=== PATIENT | male | born 1950 | race Caucasian/White ===

== ENCOUNTER 2018-04-24 18:38 | Observation (INO) | payer MEDICARE, MEDICAID ==
[2018-04-24 19:19] LABS: ABS Basophils 0.1 10^3/ul (0-0.2); ABS Eosinophils 0 10^3/ul (0-0.6); ABS Lymphocytes 1.1 10^3/ul (1.0-4.8); ABS Monocytes 0.3 10^3/ul (0-0.8); ABS Neutrophils 5.6 10^3/ul (1.5-7.7); ABS Nucleated RBC 0 10^3/ul; Eosinophil % 0.3 % (0-6); Hematocrit 44 % (42-52); Hemoglobin 15.2 g/dl (14.0-18.0); Lymphocyte % 15.5 % (25-47); Mean Corpuscular HGB Conc 35 g/dl (31-36); Mean Corpuscular Hemoglobin 30 pg (27-31); Mean Corpuscular Volume 87 fL (80-94); Nucleated Red Blood Cells % 0.1; Platelet Count 249 10^3/ul (150-450); Red Blood Count 5.04 10^6/ul (4.00-5.40); Red Cell Distribution Width 14 % (10.5-15)
[2018-04-24 19:34] LABS: EGFR Non-African American 91.7 (>60)
--- NOTE | 2018-04-24 19:39 | RAD ---
INDICATION: Altered mental status. COMPARISON: Comparison is made with a prior CT of the brain from March 14, 2016. TECHNIQUE: Contiguous axial sections of the brain were obtained from the skull base to the vertex without contrast. The exam is limited due to motion artifact. FINDINGS: There is a prominent cisterna magna which is unchanged consistent with normal variation. The ventricles and cisterns and sulci are otherwise unremarkable. There is a small area of decreased attenuation present lateral to the right caudate nucleus which is unchanged from the prior exam suggestive of an old lacunar infarct. No other focal abnormalities or mass effect is seen. There is no evidence for hemorrhage. No significant focal osseous abnormality is seen. The visualized portion of the paranasal sinuses and mastoid air cells appear clear. IMPRESSION: 1. LIMITED STUDY, NO EVIDENCE FOR ACUTE INTRACRANIAL ABNORMALITY. 2. POSSIBLE OLD LACUNAR INFARCT, UNCHANGED.
--- NOTE | 2018-04-24 20:03 | RAD ---
INDICATION: Altered mental status. COMPARISON: Comparison is made with a prior study from September 18, 2013. TECHNIQUE: A single AP view of the chest was obtained sitting. FINDINGS: The heart is within normal limits in size. The lungs are underinflated. There are small infiltrates at both lung bases. No pleural effusion is seen. IMPRESSION: LOW LUNG VOLUMES, SMALL BIBASILAR INFILTRATES.
[2018-04-24] MEDS ORDERED: cefTRIAXone(*) 1 GM in NS 0.9% 50 ML* 50 ML IVPB ONE (20:19)
[2018-04-24] MEDS ORDERED: Ondansetron INJ* 2 MG/ML VIAL IV PRN (21:27)
[2018-04-24] MEDS ORDERED: levETIRAcetam IV* 1,000 MG in NS 0.9% 100 ML* 100 ML IVPB ONE (21:47)
[2018-04-24] MEDS: busPIRone TAB* 10 MG PO SCH (22:15)
[2018-04-24] MEDS: Heparin VIAL(*) 5000 UNITS/ML VIAL (FIVE THOUSAND) SUBCUT SCH (22:17)
[2018-04-24] MEDS: NS 0.9% 1000 ML* 1,000 ML IV SCH (22:51)
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
[2018-04-25] MEDS: Heparin VIAL(*) 5000 UNITS/ML VIAL (FIVE THOUSAND) SUBCUT SCH ×2 (05:33→14:33)
[2018-04-25 06:20] LABS: Hematocrit 42 % (42-52); Hemoglobin 14.3 g/dl (14.0-18.0); Mean Corpuscular HGB Conc 34 g/dl (31-36); Mean Corpuscular Hemoglobin 30 pg (27-31); Mean Corpuscular Volume 88 fL (80-94); Mean Platelet Volume 7.9 um3 (7.4-10.4); Platelet Count 223 10^3/ul (150-450); Red Blood Count 4.77 10^6/ul (4.00-5.40); Red Cell Distribution Width 14 % (10.5-15); White Blood Count 7.3 10^3/ul (3.5-10.8)
[2018-04-25 06:23] LABS: ABS Basophils 0 10^3/ul (0-0.2); ABS Eosinophils 0 10^3/ul (0-0.6); ABS Lymphocytes 1.2 10^3/ul (1.0-4.8); ABS Monocytes 0.6 10^3/ul (0-0.8); ABS Neutrophils 5.4 10^3/ul (1.5-7.7); ABS Nucleated RBC 0 10^3/ul; Eosinophil % 0.5 % (0-6); Lymphocyte % 16.5 % (25-47); Nucleated Red Blood Cells % 0
[2018-04-25 06:30] LABS: EGFR Non-African American 132.7 (>60)
[2018-04-25] MEDS: busPIRone TAB* 10 MG PO SCH ×2 (08:32→14:33)
[2018-04-25] MEDS: NS 0.9% 1000 ML* 1,000 ML IV SCH (08:38)
[2018-04-25] MEDS ORDERED: Atorvastatin* 40 MG TAB PO SCH (09:00)
[2018-04-25] MEDS ORDERED: FLUoxetine CAP* 10 MG PO SCH (09:00)
[2018-04-25] MEDS ORDERED: ARIPiprazole TAB* 5 MG PO SCH (09:00)
[2018-04-25] MEDS ORDERED: FLUoxetine CAP* 20 MG PO SCH (09:00)
--- NOTE | 2018-04-25 13:24 | CONSULT ---
Consult Consult: Pt was seen at bedside. Pt and family feel like he is back to baseline. The diagnosis here is probably breakthrough seizures. He was probably post ictal and then recovered but had another seizure last night to put him in a confused state. He has evidence of tongue biting (laceration of tongue was present on exam). Levetiracetam is not a good option given his history of anxiety and depression. I started Zonisamide 100 mg daily to increase to 200 mg daily after 3 days. I also placed him back on phenytoin 125 mg three times daily. The supratherapeutic level is not contributing to his seizures or confusion. Pt is cleared to go home from the neurology standpoint once the UA and urine tox are back. Complete consult note was dictated.
[2018-04-25] MEDS ORDERED: CMCS Zonisamide (NF) 50 MG CAP PO SCH (14:00)
[2018-04-25] MEDS ORDERED: Phenytoin CHEW TAB(*) 50 MG PO SCH (14:00)
--- NOTE | 2018-04-25 14:29 | ED ---
Derrick Christianson Tiffany, scribed for Soto Moctezuma MD on 04/24/18 at 1913 . Altered Mental Status - HPI Summary HPI Summary: 67 year old M presenting to [facility] complains of confusion since 13:00 today. Symptoms aggravated by nothing. Symptoms alleviated by nothing. Patient's mother reports that patient was found confused downtown by police who brought him to mental health facility, where one staff member took him home to be with his brother and [id number], upon which patient did not recognize his home or his family members. Patient has no memory of this episode of confusion. - History Of Current Complaint Chief Complaint: EDAltMentalStatus Stated Complaint: MHE Time Seen by Provider: 04/24/18 18:52 Hx Obtained From: Family/Operational Review Sergeant - mother Timing: Lasting Hours - 13:00 today Character: Confusion Aggravating Factor(s): Nothing Alleviating Factor(s): Nothing - Allergies/Home Medications Allergies/Adverse Reactions: Allergies Allergy/AdvReac Type Severity Reaction Status Date / Time No Known Allergies Allergy Verified 04/24/18 18:46 Home Medications: Home Medications ARIPiprazole TAB* [Abilify TAB*] 5 mg PO DAILY 04/24/18 [History Confirmed 10/01] Atorvastatin* [Lipitor*] 40 mg PO DAILY 04/24/18 [History Confirmed 04/24/18] FLUoxetine CAP* [PROzac CAP*] 10 mg PO QAM 04/24/18 [History Confirmed 04/24/18] FLUoxetine CAP* [PROzac CAP*] 20 mg PO QAM 04/24/18 [History Confirmed 04/24/18] Phenytoin 125 mg PO TID 04/24/18 [History Confirmed 04/24/18] PMH/Surg Hx/FS Hx/Imm Hx Previously Healthy: No Endocrine/Hematology History: Denies: Hx Anticoagulant Therapy, Hx Blood Disorders Neurological History: Reports: Hx Seizures Psychiatric History: Reports: Hx Anxiety, Hx Depression Denies: Hx Schizophrenia, Hx Bipolar Disorder - Immunization History Date of Tetanus Vaccine: UNSURE Date of Influenza Vaccine: 2012 Infectious Disease History: No Infectious Disease History: Denies: Traveled Outside the [place] in Last 30 Days - Family History Known Family History: Positive: Unknown - Social History Alcohol Use: None Hx Substance Use: No Substance Use Type: Reports: None Hx Tobacco Use: No Smoking Status (MU): Never Smoked Tobacco Review of Systems Negative: Fever Neurological: Other - confusion All Other Systems Reviewed And Are Negative: Yes Physical Exam - Summary Physical Exam Summary: VITAL SIGNS: Reviewed. GENERAL: Patient is a well-developed and nourished male who is lying comfortable in the stretcher. Patient is not in any acute respiratory distress. HEAD AND FACE: No signs of trauma. No ecchymosis, hematomas or skull depressions. No sinus tenderness. EYES: PERRLA, EOMI x 2, No injected conjunctiva, no nystagmus. EARS: Hearing grossly intact. Ear canals and tympanic membranes are within normal limits. MOUTH: Oropharynx within normal limits. NECK: Supple, trachea is midline, no adenopathy, no JVD, no carotid bruit, no c- spine tenderness, neck with full ROM. CHEST: Symmetric, no tenderness at palpation LUNGS: Clear to auscultation bilaterally. No wheezing or crackles. CVS: Regular rate and rhythm, S1 and S2 present, no murmurs or gallops appreciated. ABDOMEN: Soft, non-tender. No signs of distention. No rebound no guarding, and no masses palpated. Bowel sounds are normal. EXTREMITIES: FROM in all major joints, no edema, no cyanosis or clubbing. NEURO: Alertx3, but not oriented. No acute neurological deficits. Speech is normal and follows commands. He is confused. SKIN: Dry and warm Triage Information Reviewed: Yes Vital Signs On Initial Exam: Initial Vitals Temp Pulse Resp BP Pulse Ox 97.8 F 99 20 145/91 94 04/24/18 18:41 04/24/18 18:41 04/24/18 18:41 04/24/18 18:41 04/24/18 18:41 Vital Signs Reviewed: Yes Diagnostics - Vital Signs Vital Signs Temp Pulse Resp BP Pulse Ox 04/24/18 18:41 97.8 F 99 20 145/91 94 - Laboratory Lab Results: Lab Results 04/24/18 04/24/18 04/24/18 Range/Units 19:00 19:00 20:12 WBC 7.0 (3.5-10.8) 10^3/ul RBC 5.04 (4.00-5.40) 10^6/ul Hgb 15.2 (14.0-18.0) g/dl Hct 44 (42-52) % MCV 87 (80-94) fL MCH 30 (27-31) pg MCHC 35 (31-36) g/dl RDW 14 (10.5-15) % Plt Count 249 (150-450) 10^3/ul MPV 8.0 (7.4-10.4) um3 Neut % (Auto) 79.5 (38-83) % Lymph % (Auto) 15.5 L (25-47) % [place] % (Auto) 3.9 (0-7) % Eos % (Auto) 0.3 (0-6) % Baso % (Auto) 0.8 (0-2) % Absolute Neuts (auto) 5.6 (1.5-7.7) 10^3/ul Absolute Lymphs (auto) 1.1 (1.0-4.8) 10^3/ul Absolute Monos (auto) 0.3 (0-0.8) 10^3/ul Absolute Eos (auto) 0 (0-0.6) 10^3/ul Absolute Basos (auto) 0.1 (0-0.2) 10^3/ul Absolute Nucleated RBC 0 10^3/ul Nucleated RBC % 0.1 Sodium 140 (139-145) mmol/L Potassium 4.1 (3.5-5.0) mmol/L Chloride 103 (101-111) mmol/L Carbon Dioxide 28 (22-32) mmol/L Anion Gap 9 (2-11) mmol/L BUN 17 (6-24) mg/dL Creatinine 0.84 (0.67-1.17) mg/dL Est GFR ( Amer) 117.9 (>60) Est GFR (Non-Af Amer) 91.7 (>60) BUN/Creatinine Ratio 20.2 H (8-20) Glucose 176 H (70-100) mg/dL Lactic Acid 1.5 (0.5-2.0) mmol/L Calcium 9.8 (8.6-10.3) mg/dL Total Bilirubin 0.30 (0.2-1.0) mg/dL AST 13 (13-39) U/L ALT 15 (7-52) U/L Alkaline Phosphatase 154 H (34-104) U/L Troponin I 0.00 (<0.04) ng/mL C-Reactive Protein 14.28 H (< 5.00) mg/L Total Protein 8.1 (6.4-8.9) g/dL Albumin 4.3 (3.2-5.2) g/dL Globulin 3.8 (2-4) g/dL Albumin/Globulin Ratio 1.1 (1-3) TSH 2.03 (0.34-5.60) mcIU/mL Salicylates < 2.50 (<30) mg/dL Acetaminophen < 15 mcg/mL Serum Alcohol < 10 (<10) mg/dL Result Diagrams: 04/25/18 06:01 04/25/18 06:01 Lab Statement: Any lab studies that have been ordered have been reviewed, and results considered in the medical decision making process. - Radiology CXR Radiology Interpretation Completed By: Radiologist - LOW LUNG VOLUMES, SMALL BIBASILAR INFILTRATES. ED physician has reviewed this report. - CT Brain CT Interpretation Completed By: Radiologist - 1. LIMITED STUDY, NO EVIDENCE FOR ACUTE INTRACRANIAL ABNORMALITY. 2. POSSIBLE OLD LACUNAR INFARCT, UNCHANGED. ED physician has reviewed this report. - EKG 19:13 Cardiac Rate: Tachycardia - 101 BPM EKG Rhythm: Sinus Tachycardia EKG Interpretation: No ST elevations. Normal axis. Altered Mental Statu Course/Dx - Course Assessment/Plan: Initially the patient was placed on a groundwater monitoring technician, IV access was obtained, and the patient was started and an IV fluids. Blood test results without any significant abnormality except Glucose 176. Alcohol level is less than 10, acetaminophen level less than 15 and salicylates less than 2.5. EKG: Normal sinus rhythm without any ST elevations. Chest x-ray impression: low lung volumes, small bibasilar infiltrates. Head CT impression : Limited study, no evidence for acute intracranial abnormality. Possible old lacunar infarct unchanged. In the ED course the patient has remained calm and stable. He continues to be confused, therefore, I discussed my physical examination findings per Dr. Morales from the hospitalist services who agrees to admit the patient services for further workup and management. Dr. Morales requested not given antibiotics since she doesnt think that the patient has pneumonia. - Diagnoses Provider Diagnoses: Altered mental status - Provider Notifications Discussed Care Of Patient With: Felicia Barlow Time Discussed With Above Provider: 20:53 Instructed by Provider To: Other - Dr. Barlow, hospitalist, agrees to admit patient. Discharge - Sign-Out/Discharge Documenting (check all that apply): Discharge/Admit/Transfer - Discharge Plan Condition: Stable Disposition: ADMITTED TO [facility] - Billing Disposition and Condition Condition: STABLE Disposition: Admitted to [facility] The documentation as recorded by the Derrick catalan Tiffany accurately reflects the service I personally performed and the decisions made by , Soto Moctezuma MD.
[2018-04-25 14:38] LABS: Urine Appearance Clear; Urine Blood Negative (Negative); Urine Color Straw; Urine Ketones Negative (Negative); Urine Protein Negative (Negative); Urine Specific Gravity 1.008 (1.010-1.030); Urine Urobilinogen Negative (Negative)
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
[2018-04-25 15:59] VITALS: BP 112/59
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
== END 2018-04-25 17:50 | disposition home or self-care (01) ==
LOC: ED 18:38 → MED 21:27 → OBSVTOIN 21:27 → INTOOBSV 21:27
PROVIDERS: ADMIT Pediatrics; ATTEND Hospitalist
DX: R41.0 Disorientation, unspecified (principal); G40.909 Epilepsy, unspecified, not intractable, without status epilepticus; R41.82 Altered mental status, unspecified; F32.9 Major depressive disorder, single episode, unspecified; E78.5 Hyperlipidemia, unspecified; F41.9 Anxiety disorder, unspecified; G31.84 Mild cognitive impairment of uncertain or unknown etiology
CPT/HCPCS: 36415; 70450; 71045; 80048; 80053; 80185; 80307; 80320; 80329; 81003; 82550; 83605; 84145; 84443; 84484; 85025; 86140; 93005; 95816; 96365; 96366; 99283; A9270-GY; G0378; G0480; J1644

== ENCOUNTER 2018-09-06 14:47 | Inpatient (IN) | payer MEDICARE, MEDICAID ==
--- NOTE | 2018-09-06 15:01 | ED ---
Neurological HPI - HPI Summary HPI Summary: This pt is a 69 y/o male presenting to [facility] for confusion. is providing the history today. Pt has hx of seizures. reports the pt went to Dr. Booth' s office yesterday for blood work. Blood work shows phenytoin of 35.9 (from ). states they were instructed to stop Dilantin last night and this morning. Pt's last dose of Dilantin was at 17:00 yesterday. notes that pt woke up at 13:30 in a state of confusion. reports pt has an upcoming appointment with Dr. Booth on September 14. HPI IS LIMITED DUE TO LEVEL 5 CAVEAT - pt with confusion. - History of Current Complaint Stated Complaint: CONFUSION Hx Obtained From: Family/Skid Worker - Hx From Patient Unobtainable Due To: Other - Pt with confusion and AMS Onset/Duration: Started hours ago, Still Present Timing: Sudden Onset Current Severity: Severe Character: Confusion Aggravating: Unknown Alleviating: Unknown Associated Signs and Symptoms: Positive: Confusion, AMS - Additional Pertinent History Primary Care Physician: ED - Allergy/Home Medications Allergies/Adverse Reactions: Allergies Allergy/AdvReac Type Severity Reaction Status Date / Time No Known Allergies Allergy Verified 04/24/18 18:46 Home Medications: Home Medications Cholecalciferol (Vitamin D3) [Vitamin D3] 1,000 unit PO DAILY 09/06/18 [History Confirmed 09/06/18] FLUoxetine CAP* [PROzac CAP*] 10 mg PO QAM 09/06/18 [History Confirmed 09/06/18] FLUoxetine CAP* [PROzac CAP*] 20 mg PO QAM 09/06/18 [History Confirmed 09/06/18] Phenytoin CHEW TAB(*) [Dilantin Infatabs CHEW TAB(*)] 125 mg PO TID 09/06/18 [ History Confirmed 09/06/18] Zonisamide(NF) [Zonegran(NF)] 200 mg PO DAILY 09/06/18 [History Confirmed ] busPIRone TAB* [Buspar TAB *] 30 mg PO TID PRN 09/06/18 [History Confirmed 09/06] PMH/Surg Hx/FS Hx/Imm Hx Endocrine/Hematology History: Denies: Hx Anticoagulant Therapy, Hx Blood Disorders Sensory History: Denies: Hx Contacts or Glasses, Hx Hearing Aid Opthamlomology History: Denies: Hx Contacts or Glasses Neurological History: Reports: Hx Seizures Psychiatric History: Reports: Hx Anxiety, Hx Depression Denies: Hx Schizophrenia, Hx Bipolar Disorder - Immunization History Date of Tetanus Vaccine: UNSURE Date of Influenza Vaccine: 2012 - Family History Known Family History: Positive: Unknown - due to level 5 caveat - pt with confusion - Social History Alcohol Use: None Hx Substance Use: No Substance Use Type: Reports: None Hx Tobacco Use: No Smoking Status (MU): Never Smoked Tobacco Review of Systems - ROS Summary Review of Systems Summary: ROS IS LIMITED DUE TO LEVEL 5 CAVEAT - pt with confusion Negative: Fever Neurological: Other - POS: confusion All Other Systems Reviewed And Are Negative: No Physical Exam - Summary Physical Exam Summary: VITAL SIGNS: Reviewed. GENERAL: Patient is a well-developed and nourished male who is lying comfortable in the stretcher. Patient is not in any acute respiratory distress. HEAD AND FACE: No signs of trauma. No ecchymosis, hematomas or skull depressions. No sinus tenderness. EYES: PERRLA, EOMI x 2, No injected conjunctiva, no nystagmus. EARS: Hearing grossly intact. Ear canals and tympanic membranes are within normal limits. MOUTH: Oropharynx within normal limits. NECK: Supple, trachea is midline, no adenopathy, no JVD, no carotid bruit, no c- spine tenderness, neck with full ROM. CHEST: Symmetric, no tenderness at palpation LUNGS: Clear to auscultation bilaterally. No wheezing or crackles. CVS: Regular rate and rhythm, S1 and S2 present, no murmurs or gallops appreciated. ABDOMEN: Soft, non-tender. No signs of distention. No rebound, no guarding, and no masses palpated. Bowel sounds are normal. EXTREMITIES: FROM in all major joints, no edema, no cyanosis or clubbing. NEURO: Alert but not oriented. Pt is ataxic. SKIN: Dry and warm GCS: 13 Triage Information Reviewed: Yes Vital Signs On Initial Exam: Initial Vitals Temp Pulse Resp BP Pulse Ox 98.2 F 100 16 142/82 95 09/06/18 14:57 09/06/18 14:57 09/06/18 14:57 09/06/18 14:57 10/24/18 14:57 Vital Signs Reviewed: Yes Completion Of Physical Exam Limited Due To: Level 5 - pt with confusion Diagnostics - Laboratory Result Diagrams: 09/06/18 15:17 09/06/18 15:17 Lab Statement: Any lab studies that have been ordered have been reviewed, and results considered in the medical decision making process. - Radiology Chest XR Radiology Interpretation Completed By: Radiologist Summary of Radiographic Findings: IMPRESSION: No active cardiopulmonary disease. Dr. Moctezuma has reviewed this report. - CT Brain CT CT Interpretation Completed By: Radiologist Summary of CT Findings: IMPRESSION: No intracranial mass or hemorrhage is noted. Dr. Moctezuma has reviewed this report. - EKG 15:11 Cardiac Rate: NL - at 99 bpm EKG Rhythm: Sinus Rhythm Summary of EKG Findings: No ST elevations. Course/Dx - Course Assessment/Plan: Pt is a 69 y/o male presenting to [facility] for confusion. is providing the history today. Pt has hx of seizures. reports the pt went to Dr. Booth's office yesterday for blood work. Blood work shows phenytoin of 35.9 ( from 09/05/18). states they were instructed to stop Dilantin last night and this morning. Pt's last dose of Dilantin was at 17:00 yesterday. notes that pt woke up at 13:30 in a state of confusion. reports pt has an upcoming appointment with Dr. Booth on September 14. In the physical exam the patient is confused and ataxic. Blood work without any significant abnormalities except for glucose of 174, magnesium 1.8, urinalysis is negative for UTI, and phenytoin level is 35.4. Patient was given magnesium by mouth. Head CT impression: No intracranial mass or hemorrhage. Chest x-ray impression : No acute pathology. I discussed the case with Dr. Sargent who recommends admission due to the phenytoin toxicity. I discussed my physical exam, findings and test results with Dr. Leija from the hospitalist services and she agrees to admit patient to her services. Patient is hemodynamically stable, alert but not oriented. - Differential Dx Differential Diagnoses Neuro: Positive: Carbon Monoxide Poisoning, Dysrhythmia, Seizure Disorder, Transient Ischemic Attack - Diagnoses Provider Diagnoses: Phenytoin toxicity - Physician Notifications Discussed Care Of Patient With: Bethany Leija - hospitalist Time Discussed With Above Provider: 16:19 Instructed by Provider To: Admit As Inpatient Discharge - Sign-Out/Discharge Documenting (check all that apply): Patient Departure - Admit to [facility] All imaging exams completed and their final reports reviewed: Yes - Discharge Plan Condition: Stable Disposition: ADMITTED TO [facility] - Billing Disposition and Condition Condition: STABLE Disposition: Admitted to [facility] - Attestation Statements Document Initiated by Scribe: Yes Documenting Scribe: Kelli Romero Provider For Whom Scribe is Documenting (Include Credential): Soto Moctezuma MD Scribe Attestation: Kelli Christianson, scribed for Soto Moctezuma MD on 09/06/18 at 1832. Scribe Documentation Reviewed: Yes Provider Attestation: The documentation as recorded by the Kelli catalan accurately reflects the service I personally performed and the decisions made by me, Soto Moctezuma MD
[2018-09-06 15:33] LABS: ABS Basophils 0 10^3/ul (0-0.2); ABS Eosinophils 0 10^3/ul (0-0.6); ABS Lymphocytes 0.5 10^3/ul (1.0-4.8); ABS Monocytes 0.5 10^3/ul (0-0.8); ABS Neutrophils 7.5 10^3/ul (1.5-7.7); ABS Nucleated RBC 0 10^3/ul; Eosinophil % 0.1 % (0-6); Hematocrit 44 % (42-52); Hemoglobin 15.4 g/dl (14.0-18.0); Mean Corpuscular HGB Conc 35 g/dl (31-36); Mean Corpuscular Hemoglobin 30 pg (27-31); Mean Corpuscular Volume 87 fL (80-94); Nucleated Red Blood Cells % 0; Platelet Count 201 10^3/ul (150-450); Red Blood Count 5.07 10^6/ul (4.00-5.40); Red Cell Distribution Width 14 % (10.5-15); White Blood Count 8.5 10^3/ul (3.5-10.8)
--- NOTE | 2018-09-06 15:36 | RAD ---
HISTORY: confusion COMPARISONS: April 24, 2018 VIEWS: 1: frontal AP view of the chest at 3:10 PM FINDINGS: LINES AND TUBES: None. CARDIOMEDIASTINAL SILHOUETTE: The aorta is tortuous. The cardiomediastinal silhouette is otherwise normal for portable technique. PLEURA: The costophrenic angles are sharp. No pleural abnormalities are noted. LUNG PARENCHYMA: The lungs are clear. ABDOMEN: The upper abdomen is clear. There is no subphrenic gas. BONES AND SOFT TISSUES: No bone or soft tissue abnormalities are noted. IMPRESSION: NO ACTIVE CARDIOPULMONARY DISEASE.
[2018-09-06 15:51] LABS: EGFR Non-African American 125.5 (>60)
--- NOTE | 2018-09-06 16:08 | RAD ---
Indication: Confusion. CT of the brain performed without IV contrast. Ventricular structures are midline. No midline shift is noted. The extra-axial spaces are unremarkable. There is no evidence of intracranial mass or hemorrhage. No other high or low density lesions are noted. Mastoid air cells and paranasal sinuses are otherwise unremarkable. IMPRESSION: No intracranial mass or hemorrhage is noted.
[2018-09-06] MEDS ORDERED: Acetaminophen TAB* 325 MG PO PRN (16:45)
[2018-09-06] MEDS ORDERED: Magnesium Hydroxide LIQ* 30 ML UDC PO PRN (16:45)
[2018-09-06] MEDS ORDERED: busPIRone TAB* 15 MG PO PRN (16:47)
[2018-09-06 17:20] LABS: Urine Appearance Cloudy; Urine Blood Negative (Negative); Urine Color Yellow; Urine Ketones Trace (Negative); Urine Protein Negative (Negative); Urine Specific Gravity 1.015 (1.010-1.030); Urine Urobilinogen Positive (Negative)
[2018-09-06] MEDS ORDERED: busPIRone TAB* 30 MG PO PRN (18:00)
[2018-09-06] MEDS: FLUoxetine CAP* 20 MG PO SCH (18:31)
[2018-09-06] MEDS: FLUoxetine CAP* 10 MG PO SCH (18:31)
[2018-09-06] MEDS: Atorvastatin* 40 MG TAB PO SCH (18:31)
[2018-09-06] MEDS: NS 0.9% 1000 ML* 1,000 ML IV SCH (18:32)
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
[2018-09-06] MEDS: Heparin VIAL(*) 5000 UNITS/ML VIAL (FIVE THOUSAND) SUBCUT SCH (21:34)
[2018-09-06] MEDS ORDERED: Benztropine TAB* 1 MG PO ONE (22:00)
[2018-09-07] MEDS: Heparin VIAL(*) 5000 UNITS/ML VIAL (FIVE THOUSAND) SUBCUT SCH ×3 (05:39→23:11)
[2018-09-07] MEDS: NS 0.9% 1000 ML* 1,000 ML IV SCH ×2 (05:39→15:35)
[2018-09-07 09:01] LABS: ABS Basophils 0 10^3/ul (0-0.2); ABS Eosinophils 0.1 10^3/ul (0-0.6); ABS Lymphocytes 1.1 10^3/ul (1.0-4.8); ABS Neutrophils 5.6 10^3/ul (1.5-7.7); ABS Nucleated RBC 0 10^3/ul; Eosinophil % 1.1 % (0-6); Hematocrit 46 % (42-52); Hemoglobin 16.2 g/dl (14.0-18.0); Lymphocyte % 13.7 % (25-47); Mean Corpuscular HGB Conc 35 g/dl (31-36); Mean Corpuscular Hemoglobin 31 pg (27-31); Mean Corpuscular Volume 88 fL (80-94); Mean Platelet Volume 8.7 um3 (7.4-10.4); Nucleated Red Blood Cells % 0.1; Platelet Count 206 10^3/ul (150-450); Red Blood Count 5.22 10^6/ul (4.00-5.40); Red Cell Distribution Width 14 % (10.5-15); White Blood Count 7.9 10^3/ul (3.5-10.8)
[2018-09-07] MEDS: FLUoxetine CAP* 20 MG PO SCH (09:16)
[2018-09-07] MEDS: CMC:Zonisamide (NF) 50 MG CAP PO SCH (09:16)
[2018-09-07] MEDS: Atorvastatin* 40 MG TAB PO SCH (09:16)
[2018-09-07] MEDS: FLUoxetine CAP* 10 MG PO SCH (09:16)
[2018-09-07 09:20] LABS: EGFR Non-African American 127.8 (>60)
[2018-09-07] MEDS ORDERED: KCL 10 MEQ/50 ML IVPREMIX* 0 MEQ/0 ML BAG ONE (10:36)
--- NOTE | 2018-09-07 13:47 | PN ---
Subjective Date of Service: 09/07/18 Interval History: . Patient is able to tell me where he is, name and and why he is the hospital. Pt reports feeling "restless". He experienced some nausea with vomiting x2 this afternoon after lunch Objective Active Medications: Acetaminophen (Tylenol Tab*) 650 mg PO Q4H PRN PRN Reason: FEVER/PAIN Atorvastatin Calcium (Lipitor*) 40 mg PO DAILY [facility] Last Admin: 09/07/18 09:16 Dose: 40 mg Buspirone HCl (Buspar Tab*) 30 mg PO TID PRN PRN Reason: ANXIETY Last Admin: 09/06/18 18:32 Dose: 30 mg Fluoxetine HCl (Prozac Cap*) 20 mg PO QAM [facility] Last Admin: 09/07/18 09:16 Dose: 20 mg Fluoxetine HCl (Prozac Cap*) 10 mg PO QAM [facility] Last Admin: 09/07/18 09:16 Dose: 10 mg Heparin Sodium (Porcine) (Heparin Vial(*)) 5,000 units SUBCUT Q8HR [facility] Last Admin: 09/07/18 05:39 Dose: 5,000 units Sodium Chloride (Ns 0.9% 1000 Ml*) 1,000 mls @ 100 mls/hr IV PER RATE [facility] Last Admin: 09/07/18 05:39 Dose: 100 mls/hr Magnesium Hydroxide (Milk Of Magnprema Liq*) 30 ml PO Q4H PRN PRN Reason: CONSTIPATION Zonisamide (Zonegran (Nf)) 200 mg PO DAILY [facility] Last Admin: 09/07/18 09:16 Dose: 200 mg Vital Signs - 8 hr 09/07/18 08:00 Respiratory 16 Rate Oxygen Devices in Use Now: None Appearance: 67 yo male laying in bed restless A+O x3 in NAD - lip smacking noted Eyes: No Scleral Icterus, PERRLA Ears/Nose/Mouth/Throat: NL Teeth, Lips, Gums, Mucous Membranes Moist Respiratory: Symmetrical Chest Expansion and Respiratory Effort, Clear to Auscultation Cardiovascular: NL Sounds; No Murmurs; No JVD, RRR, No Edema Abdominal: NL Sounds; No Tenderness; No Distention Lymphatic: No Cervical Adenopathy Extremities: No Edema, No Clubbing, Cyanosis Skin: No Rash or Ulcers, No Nodules or Sclerosis Neurological: Alert and Oriented x 3, NL Muscle Strength and Tone, - - tardive dyskinesia signs of lip smacking Lines/Tubes/Other Access: Clean, Dry and Intact Peripheral IV Nutrition: Taking PO's Result Diagrams: 09/07/18 06:30 09/07/18 06:30 Assess/Plan/Problems-Billing Assessment: 67 yo male with PMH of developmental disability, seizures on dilantin who presented with AMS found to have supratheraputic Dilantin levels. - Patient Problems (1) Altered mental status Comment: - Resolved - Dilantin toxicity level of 35 down to 27. Dilantin on hold. - Appreciate Neurology consult - recommends to restart Dilantin when level reaches closer to 20. - Ammonia level mildly elevated on admission -> now normal - Check Dilantin levels daily (2) Seizure Comment: - Hold dilantin - Seizure precautions (3) DVT prophylaxis Comment: HSQ (4) Full code status Status and Disposition: OBV with AMS with Dilantin toxicity. Home when medically stable
[2018-09-07] MEDS: Ondansetron INJ* 2 MG/ML VIAL IV PRN ×2 (14:58→15:38)
[2018-09-07] MEDS ORDERED: Ondansetron INJ* 2 MG/ML VIAL IV PRN (15:35)
[2018-09-07] MEDS ORDERED: Ondansetron INJ* 2 MG/ML VIAL ONE (15:37)
[2018-09-07] MEDS ORDERED: LORazepam INJ* 2 MG/ML 1 ML VIAL ONE (20:04)
[2018-09-07] MEDS ORDERED: LORazepam INJ* 2 MG/ML 1 ML VIAL IV PUSH ONE ×3 (20:06→22:25)
[2018-09-07] MEDS ORDERED: levETIRAcetam IV* 750 MG in NS 0.9% 100 ML* 100 ML IVPB ONE (20:12)
--- NOTE | 2018-09-07 20:21 | PN ---
Progress Note - Progress Note Date of Service: 09/07/18 Note: Called to bedside by RN for concern of seizure activity. Patient reported to have at least 3 seizures lasting 30-60 seconds since 7pm. At the time of my first examination, patient was awake and answering questions appropriately with one word answers. Within 5-10 minutes, Dr. Ridley to bedside and patient was again actively seizing (unresponsive to stimuli, mild generalized shaking, snoring respirations). Ativan ordered, call placed to Dr. Orosco. Suspect seizures secondary to changes in dilantin level though it is likely still supratherapeutic. Ana Luisa recommended keppra 750mg IV x 1 and agreed with transfer to ICU. Will order CBC, CMP, lactic acid, CPK now. Plan for EEG tomorrow. Ativan prn. Seizure precautions with close monitoring.
[2018-09-07] MEDS ORDERED: levETIRAcetam 500 MG IVPREMIX* 500 MG/100 ML BAG IV SCH (21:00)
--- NOTE | 2018-09-07 21:38 | CONS ---
NEUROLOGY FOLLOWUP NOTE: DATE OF FOLLOWUP: 09/07/18. LOCATION: He is in room# 448. HOSPITALIST: Aysha Lemus NP. CHIEF COMPLAINT: Dilantin toxicity. INTERVAL HISTORY: Since yesterday, Danyel has not been up and walking. He has been nauseous and vomited earlier today. MEDICATIONS: Medications are reviewed and he remains off of Dilantin, he is on: 1. Atorvastatin 40 mg p.o. daily. 2. BuSpar 30 mg p.o. t.i.d. as needed for anxiety. 3. Fluoxetine 30 mg p.o. daily. 4. Zonisamide 200 mg p.o. daily. PHYSICAL EXAM: He has an upset stomach and feels dizzy. He has fairly constant [id number] dyskinesias. Temperature 98.8, blood pressure 126/ 66, heart rate in the 70s and regular. Eye movements are full without nystagmus. There is no asterixis or myoclonus in the arms. LABORATORY DATA: Includes a Dilantin level today of 27.3, down from 35.4 on . CBC today is unremarkable and chemistry profile was likewise unremarkable. IMPRESSION AND PLAN: Impression is that of Dilantin toxicity. We will check his level tomorrow, and if he gets into the low 20s or below, we will start Dilantin back up but not at the outpatient dose of 125 mg 3 times per day, which he had been on previously. [id number]/[facility] #: [id number] [facility]
[2018-09-07 21:39] LABS: ABS Basophils 0 10^3/ul (0-0.2); ABS Eosinophils 0 10^3/ul (0-0.6); ABS Lymphocytes 0.5 10^3/ul (1.0-4.8); ABS Monocytes 0.3 10^3/ul (0-0.8); ABS Neutrophils 7.5 10^3/ul (1.5-7.7); ABS Nucleated RBC 0 10^3/ul; Eosinophil % 0.1 % (0-6); Hematocrit 42 % (42-52); Hemoglobin 14.6 g/dl (14.0-18.0); Lymphocyte % 5.6 % (25-47); Mean Corpuscular HGB Conc 35 g/dl (31-36); Mean Corpuscular Hemoglobin 30 pg (27-31); Mean Corpuscular Volume 87 fL (80-94); Mean Platelet Volume 8.2 um3 (7.4-10.4); Nucleated Red Blood Cells % 0; Platelet Count 213 10^3/ul (150-450); Red Cell Distribution Width 14 % (10.5-15); White Blood Count 8.3 10^3/ul (3.5-10.8)
[2018-09-07 21:55] LABS: EGFR Non-African American 127.8 (>60)
[2018-09-07] MEDS ORDERED: levETIRAcetam 500 MG IVPREMIX* 500 MG/100 ML BAG IV ONE (23:00)
[2018-09-08] MEDS: NS 0.9% 1000 ML* 1,000 ML IV SCH (06:14)
[2018-09-08] MEDS: Heparin VIAL(*) 5000 UNITS/ML VIAL (FIVE THOUSAND) SUBCUT SCH ×2 (06:14→14:43)
[2018-09-08 06:57] LABS: ABS Basophils 0 10^3/ul (0-0.2); ABS Eosinophils 0 10^3/ul (0-0.6); ABS Lymphocytes 0.7 10^3/ul (1.0-4.8); ABS Neutrophils 8.2 10^3/ul (1.5-7.7); ABS Nucleated RBC 0 10^3/ul; Eosinophil % 0.1 % (0-6); Hematocrit 43 % (42-52); Hemoglobin 14.8 g/dl (14.0-18.0); Lymphocyte % 6.7 % (25-47); Mean Corpuscular HGB Conc 34 g/dl (31-36); Mean Corpuscular Hemoglobin 30 pg (27-31); Mean Corpuscular Volume 88 fL (80-94); Mean Platelet Volume 8.4 um3 (7.4-10.4); Nucleated Red Blood Cells % 0; Platelet Count 209 10^3/ul (150-450); Red Blood Count 4.91 10^6/ul (4.00-5.40); Red Cell Distribution Width 14 % (10.5-15); White Blood Count 9.9 10^3/ul (3.5-10.8)
[2018-09-08] MEDS ORDERED: LORazepam INJ* 2 MG/ML 1 ML VIAL IV PUSH ONE ×2 (07:27→08:00)
[2018-09-08 07:44] LABS: EGFR Non-African American 149.5 (>60)
[2018-09-08] MEDS: FLUoxetine CAP* 10 MG PO SCH (08:08)
[2018-09-08] MEDS: Atorvastatin* 40 MG TAB PO SCH (08:08)
[2018-09-08] MEDS: FLUoxetine CAP* 20 MG PO SCH (08:08)
[2018-09-08] MEDS: CMC:Zonisamide (NF) 50 MG CAP PO SCH (08:09)
[2018-09-08] MEDS ORDERED: Valproic Acid IV(*) 500 MG in NS 0.9% 100 ML* 100 ML IVPB SCH (08:30)
--- NOTE | 2018-09-08 08:31 | PN ---
Hospitalist Progress Note Date of Service: 09/08/18 Patient transferred to the setter automatic spinning lathe service as per Dr. Sargent's recommendations, Dr. Rutherford updated and care assumed.
--- NOTE | 2018-09-08 08:57 | PN ---
Hospitalist Progress Note Date of Service: 09/07/18 called to bedside on 09/07 due to jerky movement. midlevel first went to see him and this continuity writer came 10 min afterwards ---> this continuity writer believed that was a true sz---> vital stable including f/s and ativan 1 mg ivp given. transferred to icu and neuro called. loaded him with keppra due to dilantin toxicity. stat lab done in the icu showed bicarb 21 ( baseline was 27-29 ) and lactic was 5--- > pt soon had the second episode of sz while on 4 s---> mourning and able to hold his arm in the air while sz---> called neuro again and got another dose of keppra. this continuity writer asked two times reg head ct to r/o bleed---> neuro said he had hx of sz so does not need head ct. pt had multiple episodes of seizures overnight ---> this continuity writer went to icu to see him at least 4 times afterwards.his jerky movement was short and able to break out on his own. last seen by this continuity writer around 530 am when he had another episode of sz for 20 sec but able to respond to this continuity writer IMMEDIATELY AFTERWARDS when his name was called. did the arm test and he would avoid his face when this continuity writer and nursing staff tried after he woke up from his sz episode. repeat lab done this am showed bicarb is 24 and lactic acid 0.9. called his mom at 730 am to inform her he was transferred to icu but vital has been stable and able to protect his airway on his own. ---> eeg and head ct to be done this am vital 152/70s hr 90s afebrile sat 90s as well general nad heart s1 s2 rrr lung decreased b/s at base neuro arousable when his name was called a/p 1 jerky movement ? grand mal seizure vs partial ---> pt will respond and was hold his arm in the air during his jerky activities ---> doubt this is true gand mal despite moving ext, EXCEPT THE FIRST TIME EPISODE. pt was loaded with keppra overnight. he may have partial sz but rapidly resovling each time because he was able to be arouse afterwards and would avoid his face when his arm was dropped to avoid his face - neuro f/u - eeg - tele monitering - may need further eval with chest x ray if he spikes temp 2 dilantin toxicity - lft wnl ck dilantin 3 dehyration with elevated lactic acid last night - ivf total critical care time one hour to provide care
[2018-09-08] MEDS ORDERED: levETIRAcetam 500 MG IVPREMIX* 500 MG/100 ML BAG IV ONE (09:00)
[2018-09-08] MEDS ORDERED: Succinylcholine* 20 MG/ML 10 ML VIAL ONE (11:16)
[2018-09-08] MEDS ORDERED: Propofol* 10 MG/ML 20 ML BTL IV PUSH ONE (11:25)
[2018-09-08] MEDS ORDERED: Propofol* 100 ML ONE (11:26)
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
[2018-09-08] MEDS ORDERED: LaCOSAMide VIAL * 200 MG/20 ML VIAL IV ONE ×2 (11:47→12:00)
[2018-09-08] MEDS ORDERED: Phenytoin IV(*) 50 MG/ML 2 ML VIAL (100 MG) IVPB SCH (12:00)
--- NOTE | 2018-09-08 12:23 | RAD ---
HISTORY: confirm et tube, og tube COMPARISONS: September 06, 2018 at 3:11 PM VIEWS: 1: frontal AP view of the chest at 12:00 PM FINDINGS: LINES AND TUBES: An endotracheal tube is noted with the tip overlying the trachea between the clavicles and the angelo. A gastric tube is noted, with the tip in the mid esophagus.. CARDIOMEDIASTINAL SILHOUETTE: The cardiomediastinal silhouette is normal for portable technique. PLEURA: The costophrenic angles are sharp. No pleural abnormalities are noted. LUNG PARENCHYMA: The lungs are clear. ABDOMEN: The upper abdomen is clear. There is no subphrenic gas. BONES AND SOFT TISSUES: No bone or soft tissue abnormalities are noted. IMPRESSION: LINES AND TUBES ABOVE. THE GASTRIC TUBE IS NOTED WITH THE TIP IN THE MIDESOPHAGUS. NO ACTIVE CARDIOPULMONARY DISEASE.
--- NOTE | 2018-09-08 12:24 | PN ---
Progress Note - Progress Note Date of Service: 09/08/18 - Procedure note Note: Procedure Note Procedure: Endotracheal Intubation Performed by: Vinita Rutherford MD Indication: Airway protection given persistent seizure activity Sedation: 100mcg Propofol Consent: Verbal consent obtained from patients mother at bedside Procedure: The patient was prepared in the usual fashion, and a size 7.5 endotrachial tube was placed under direct visualization through Glidescope, then taped at 25 inches at the teeth. Exam revealed bilateral breath sounds and good chest rise without air sounds in the abdomen. End-tidal CO2 monitor was also used to confirm tracheal placement. The patient was started on mechanical ventilation, and chest x-ray was ordered to assess for endotracheal tube placement. Complications: None
[2018-09-08] MEDS ORDERED: LaCOSAMide VIAL * 100 MG in NS 0.9% 50 ML* 50 ML IVPB ONE (12:30)
[2018-09-08] MEDS: Propofol* 100 ML IV SCH ×2 (12:47→17:11)
[2018-09-08] MEDS ORDERED: Valproic Acid IV(*) 750 MG in NS 0.9% 100 ML* 100 ML IVPB SCH ×2 (13:00→18:00)
[2018-09-08] MEDS ORDERED: Chlorhexidine MOUTHWASH 0.12%* 15 ML UDC TOPICAL SCH (13:00)
[2018-09-08] MEDS ORDERED: levETIRAcetam IV* 750 MG in NS 0.9% 100 ML* 100 ML IVPB SCH (14:00)
--- NOTE | 2018-09-08 14:37 | PN ---
Progress Note - Progress Note Date of Service: 09/08/18 - Transfer note Note: Pt continued to have seizure activity. Pt was intubated for airway protection. He was initiated on Propofol drip for ongoing seizures. He is on continuous EEG monitoring Please refer to previously dictated consultation report for further details Active Medications Generic Name Dose Route Start Last Admin Trade Name Freq PRN Reason Stop Dose Admin Acetaminophen 650 mg 09/06/18 16:45 Tylenol Tab* PO Q4H PRN FEVER/PAIN Atorvastatin Calcium 40 mg 09/06/18 17:00 09/08/18 08:08 Lipitor* PO Not Given DAILY DIONNE Buspirone HCl 30 mg 09/06/18 18:00 09/06/18 18:32 Buspar Tab* PO 30 mg TID PRN Administration ANXIETY Chlorhexidine Gluconate 15 ml 09/08/18 13:00 Peridex Mouth Wash 0.12%* TOPICAL Q4H DIONNE Fluoxetine HCl 20 mg 09/06/18 17:00 09/08/18 08:08 Prozac Cap* PO Not Given QAM DIONNE Fluoxetine HCl 10 mg 09/06/18 17:00 09/08/18 08:08 Prozac Cap* PO Not Given QAM DIONNE Heparin Sodium (Porcine) 5,000 units 09/06/18 22:00 09/08/18 06:14 Heparin Vial(*) SUBCUT 5,000 units Q8HR DIONNE Administration Sodium Chloride 1,000 mls @ 75 mls/hr 09/07/18 15:15 09/08/18 06:14 Ns 0.9% 1000 Ml* IV 75 mls/hr PER RATE DIONNE Administration Levetiracetam 750 mg/ Sodium 107.5 mls @ 430 mls/hr 09/08/18 14:00 09/08/18 14:15 Chloride IVPB 430 mls/hr Q8HR DIONNE Administration Propofol 100 mls @ 12.42 mls/hr 09/08/18 13:00 09/08/18 12:47 Diprivan* IV 12.42 mls/hr .(Initial Rate) DIONNE Administration Protocol 30 MCG/KG/MIN Valproic Acid 750 mg/ Sodium 107.5 mls @ 215 mls/hr 09/08/18 18:00 Chloride IVPB 0200,1000,1800 DIONNE Magnesium Hydroxide 30 ml 09/06/18 16:45 Milk Of Magnesia Liq* PO Q4H PRN CONSTIPATION Ondansetron HCl 8 mg 09/07/18 15:35 Zofran Inj* IV Q6H PRN NAUSEA Phenytoin Sodium 100 mg 09/08/18 15:00 Dilantin Iv(*) IV Q12H DIONNE Zonisamide 200 mg 09/07/18 09:00 09/08/18 08:09 Zonegran (Nf) PO Not Given DAILY DIONNE Vital Signs Temp Pulse Resp BP Pulse Ox 99.9 F 85 13 105/64 97 09/08/18 14:15 09/08/18 14:15 09/08/18 14:00 09/08/18 14:15 09/08/18 14:15 Laboratory Results - last 24 hr 09/07/18 09/07/18 09/07/18 20:09 21:31 21:31 WBC 8.3 RBC 4.90 Hgb 14.6 Hct 42 MCV 87 MCH 30 MCHC 35 RDW 14 Plt Count 213 MPV 8.2 Neut % (Auto) 90.5 H Lymph % (Auto) 5.6 L Boyle % (Auto) 3.5 Eos % (Auto) 0.1 Baso % (Auto) 0.3 Absolute Neuts (auto) 7.5 Absolute Lymphs (auto) 0.5 L Absolute Monos (auto) 0.3 Absolute Eos (auto) 0 Absolute Basos (auto) 0 Absolute Nucleated RBC 0 Nucleated RBC % 0 Sodium Potassium Chloride Carbon Dioxide Anion Gap BUN Creatinine Est GFR ( Amer) Est GFR (Non-Af Amer) BUN/Creatinine Ratio Glucose POC Glucose (mg/dL) 191 H Lactic Acid 5.0 H* Calcium Total Bilirubin AST ALT Alkaline Phosphatase Total Creatine Kinase Total Protein Albumin Globulin Albumin/Globulin Ratio Phenytoin 09/07/18 09/08/18 09/08/18 21:31 01:05 06:23 WBC RBC Hgb Hct MCV MCH MCHC RDW Plt Count MPV Neut % (Auto) Lymph % (Auto) Boyle % (Auto) Eos % (Auto) Baso % (Auto) Absolute Neuts (auto) Absolute Lymphs (auto) Absolute Monos (auto) Absolute Eos (auto) Absolute Basos (auto) Absolute Nucleated RBC Nucleated RBC % Sodium 134 L Potassium 3.5 Chloride 102 Carbon Dioxide 21 L Anion Gap 11 BUN 11 Creatinine 0.63 L Est GFR ( Amer) 154.7 Est GFR (Non-Af Amer) 127.8 BUN/Creatinine Ratio 17.5 Glucose 201 H POC Glucose (mg/dL) Lactic Acid 0.9 Calcium 8.9 Total Bilirubin 0.40 AST 15 ALT 12 Alkaline Phosphatase 156 H Total Creatine Kinase 61 Total Protein 7.2 Albumin 3.7 Globulin 3.5 Albumin/Globulin Ratio 1.1 Phenytoin 21.1 H 09/08/18 09/08/18 06:24 06:24 WBC 9.9 RBC 4.91 Hgb 14.8 Hct 43 MCV 88 MCH 30 MCHC 34 RDW 14 Plt Count 209 MPV 8.4 Neut % (Auto) 83.0 Lymph % (Auto) 6.7 L Boyle % (Auto) 10.0 H Eos % (Auto) 0.1 Baso % (Auto) 0.2 Absolute Neuts (auto) 8.2 H Absolute Lymphs (auto) 0.7 L Absolute Monos (auto) 1.0 H Absolute Eos (auto) 0 Absolute Basos (auto) 0 Absolute Nucleated RBC 0 Nucleated RBC % 0 Sodium 138 Potassium 3.7 Chloride 104 Carbon Dioxide 24 Anion Gap 10 BUN 12 Creatinine 0.55 L Est GFR ( Amer) 180.9 Est GFR (Non-Af Amer) 149.5 BUN/Creatinine Ratio 21.8 H Glucose 99 POC Glucose (mg/dL) Lactic Acid Calcium 8.7 Total Bilirubin AST ALT Alkaline Phosphatase Total Creatine Kinase Total Protein Albumin Globulin Albumin/Globulin Ratio Phenytoin O/E: Pt is sedated on propofol HEENT: No JVD Lungs: Coarse breath sounds + CVS: S1, S2+, regular Abd: Soft, BS+ Ext: No edema Neuro: Sedated, no seizure activity I/R: Pt with seizure disorder with persistant seizure activity, intubated for airway protection Pt currently on Propofol drip at 35 mcg, Valproic acid 750mg tid, phenytoin 100mg q 12, Keppra 750 tid CXR confirmed ETT in position, OGT needed to be advanced. Rpt CXR ordered after advancing OGT Hemodynamically stable at this time Has thick and green secretions draining through ETT Low grade fever, will hold off on abx Given lack of ability of continuous video EEG monitoring over the weekend, patient would be transferred to [facility] ICU under care of Dr Turner Sargent has discussed with accepting physician Patient`s parents not at bedside at this time, Dr Sargent left message on their VM Additional time excluding procedures 25 min
--- NOTE | 2018-09-08 14:55 | RAD ---
Indication: Orogastric tube placement confirmation. Comparison: 1201 hours September 08, 2018 Technique: Upright AP 1432 hours Report: Tip of the orogastric tube is at the level of the distal thoracic esophagus and should be advanced. Endotracheal tube tip is 3.7 cm above the [place]. Streaky LEFT basilar lung consolidation may represent atelectasis or pneumonia. Probable small LEFT pleural effusion. Negative for pneumothorax. The heart, pulmonary vasculature, and mediastinal contours are unremarkable. IMPRESSION: #. The orogastric tube needs to be advanced. #. Grossly unchanged streaky LEFT basilar lung consolidation may represent atelectasis or pneumonia. Probable small LEFT pleural effusion.
[2018-09-08] MEDS ORDERED: Zosyn per Pharmacy* NOTE FOLLOW UP SCH (15:00)
[2018-09-08] MEDS ORDERED: Phenytoin IV(*) 50 MG/ML 2 ML VIAL (100 MG) IV SCH (15:00)
[2018-09-08] MEDS ORDERED: Piperacillin/Tazobac ADVAN(*) 3.375 GM in NS 0.9% 100 ML* 100 ML IVPB ONE (15:30)
--- NOTE | 2018-09-08 16:58 | RAD ---
HISTORY: OGT confirmation COMPARISONS: September 08, 2018 at 2:29 PM VIEWS: 1: frontal AP view of the chest at 4:22 PM FINDINGS: LINES AND TUBES: An endotracheal tube is noted with the tip overlying the trachea between the clavicles and the angelo. A gastric tube is noted, with the tip in the left upper quadrant in a prepyloric position.. CARDIOMEDIASTINAL SILHOUETTE: The cardiomediastinal silhouette is normal for portable technique. PLEURA: The costophrenic angles are sharp. No pleural abnormalities are noted. LUNG PARENCHYMA: There is patchy alveolar opacification of the left lung base. ABDOMEN: The upper abdomen is clear. There is no subphrenic gas. BONES AND SOFT TISSUES: No bone or soft tissue abnormalities are noted. IMPRESSION: LINES AND TUBES ABOVE. PATCHY ATELECTASIS VERSUS EARLY CONSOLIDATION OF THE LEFT LOWER LOBE.
[2018-09-08 17:26] VITALS: BP 100/60
--- NOTE | 2018-09-08 17:34 | CONS ---
NEUROLOGY FOLLOWUP NOTE: DATE OF FOLLOWUP: 09/08/18 LOCATION: He is in ICU bed 8. HOSPITALIST: Dr. Rutherford. CHIEF COMPLAINT: Seizures. INTERVAL HISTORY: Since yesterday, Danyel started having seizures again last evening. He started to have episodes described as unresponsiveness with mild generalized shaking and snoring respirations. He was seen by Dr. Ridley and then Meghann Garduno NP. I was called and recommended he be transferred to the intensive care unit and started on Keppra 750 mg intravenously. He continued to have episodes in the intensive care unit and an additional 500 mg of Keppra was given on 2 different occasions during the quiller tender hours. He would respond to Dr. Ridley after episodes by voice. EEG was placed this morning. EEG revealed fairly frequent epileptiform discharges mainly from the right frontocentral region. MEDICATIONS: Consisted of: 1. Lipitor 40 mg p.o. q. day, which he was not able to take since yesterday. 2. Prozac 20 mg p.o. q. day, also not given since yesterday. 3. Zonegran 200 mg p.o. q. day, last given yesterday morning. PHYSICAL EXAM: On examination initially at about 7:45 this morning, he was having intermittent low amplitude twitching of the trunk and limbs, but he was able to respond to voice after it would stop. They would typically last 5 to 20 seconds. There were accompanied by epileptiform discharges in the right frontocentral region on EEG. LABORATORY DATA: From today is notable for a phenytoin level this morning at 6: 23 of 21.1, chemistry profile essentially unremarkable. CBC this morning also unremarkable. He was given Ativan 2 mg this morning and he stopped having epileptiform discharges, but not for more than about 5 or 10 minutes. Depakote was subsequently added as was an additional 500 mg of Keppra. Upon return in late morning, he continued to have epileptiform discharges and was having more frequent clinical episodes with myoclonic twitching of the trunk and limbs. He was trying to mouth response to voice, but was not able to. IMPRESSION AND PLAN: Impression is that of complex partial status epilepticus. He was given additional doses of Ativan, but it became clear that he would need to be intubated to push further with anticonvulsants. We discussed with Danyel's mother and father that he has been determined to be DNR, but that there was an option to intubate for purposes of airway control and more aggressive antiseizure medications. They elected to proceed along that line. The patient was intubated and started on propofol. Epileptiform discharges decreased considerably and then the propofol just recently adjusted. There were a few very small questionable epileptiform discharges superimposed on a generally slow background at that point. Medications have been adjusted so that he is now on Depakote 750 mg IV q.8 hours , lacosamide 100 mg is to be started, Keppra is currently 750 mg IV q.8 hours, Depakote 750 mg IV q.8 hours, and I have added phenytoin 100 mg q.12 hours. I will discuss the current state again with the parents. We do not have continuous EEG monitoring available and so, I am going to recommend we transfer if a bed is available to [facility] or to [facility]. [id number]/[facility] #: [id number] JOSS
[2018-09-08] MEDS ORDERED: ZOSYN 3.375 GM Q8H per EXTENDED INFUSION IVPB SCH ×2 (20:00)
--- NOTE | 2018-09-08 23:45 | CONS ---
FOLLOWUP/PROGRESS NOTE: DATE OF VISIT: 09/08/18 [employer] ARCHITECT: Dr. Rutherford. CHIEF COMPLAINT: Status epilepticus. INTERVAL HISTORY: Since earlier today, Danyel has been calm and on propofol. His EEG shows mainly periods of suppression surrounded by mixed theta rhythms. There are occasionally very small sharp waves in the right paracentral area, but they are very subtle and much less frequent than previously. MEDICATIONS: Currently consist of: 1. Keppra 750 mg IV q.8 hours. 2. Phenytoin 100 mg IV q.12 hours. 3. Propofol. 4. Valproic acid 750 mg IV q.8 hours. 5. He received 1 dose of lacosamide 100 mg IV. PLAN: I spoke with the [facility] and Dr. Tompkins, basket braider at the [facility], accepted Danyel in transport. We do not have continuous EEG monitoring available at our facility. I have tried to reach Zurdo' s parents by phone, but got their voicemail. I had mentioned earlier that he needs continuous EEG monitoring and unless we can arrange it remotely that I would need to transfer him to a facility with that capability. Hopefully, they will call back or come back in anytime for me to discuss the transfer with them in more detail. [id number]/[facility] #: [id number] JOSS
== END 2018-09-08 18:00 | disposition short-term general hospital (02) | DRG 948 ==
LOC: ED 14:47 → MEDTELE 16:26 → ICU 09-07 20:05 → OBSVTOIN 09-07 20:05
PROVIDERS: ADMIT Internal Medicine; ATTEND Internal Medicine
PROC: 5A1935Z Respiratory Ventilation, Less than 24 Consecutive Hours (ICD-10-PCS; principal; 2018-09-08)
PROC: 0BH17EZ Insertion of Endotracheal Airway into Trachea, Via Natural or Artificial Opening (ICD-10-PCS; 2018-09-08)
DX: R41.82 Altered mental status, unspecified (principal); G40.201 Localization-related (focal) (partial) symptomatic epilepsy and epileptic syndromes with complex partial seizures, not intractable, with status epilepticus; F32.9 Major depressive disorder, single episode, unspecified; F41.9 Anxiety disorder, unspecified; G31.84 Mild cognitive impairment of uncertain or unknown etiology; E78.5 Hyperlipidemia, unspecified; T42.0X5A Adverse effect of hydantoin derivatives, initial encounter; Z66 Do not resuscitate; R27.0 Ataxia, unspecified; R11.2 Nausea with vomiting, unspecified; E86.0 Dehydration; R74.0 Nonspecific elevation of levels of transaminase and lactic acid dehydrogenase [LDH]; R50.9 Fever, unspecified; Z87.820 Personal history of traumatic brain injury; Y92.9 Unspecified place or not applicable
CPT/HCPCS: 36415; 70450; 71045; 80048; 80053; 80185; 80203; 80307; 80320; 80329; 81003; 82140; 82550; 83605; 83735; 84443; 84484; 85025; 93005; 94002; 95813; 99284; A9270-GY; G0378; G0480; J0330; J1165; J1644; J2060; J2405; J2543; J2704; J3480